=== PATIENT | female | born 1960 | race Asian ===

== ENCOUNTER 2020-12-18 13:26 | Emergency (ER) | payer OTHER ==
[~2020-12-18] VITALS: Ht 157.5 cm; Wt 59.1 kg
[2020-12-18 13:30] VITALS: BP 148/82
== END 2020-12-18 15:43 | disposition home or self-care (01) ==
LOC: EMS 13:39
DX: J30.9 Allergic rhinitis, unspecified (principal); Z20.822 Contact with and (suspected) exposure to COVID-19
CPT/HCPCS: 99283; U0003

== ENCOUNTER 2020-12-20 12:51 | Emergency (ER) | payer OTHER ==
[~2020-12-20] VITALS: Ht 149.9 cm; Wt 50.0 kg
[2020-12-20 16:52] VITALS: BP 142/77
== END 2020-12-20 17:57 | disposition home or self-care (01) ==
LOC: EMS 12:51
DX: J06.9 Acute upper respiratory infection, unspecified (principal)
CPT/HCPCS: 99282; Z7502